=== PATIENT | female | born 1935 | race Caucasian/White ===

== ENCOUNTER 2018-09-30 10:11 | Outpatient (CLI) | payer MEDICARE, OTHER ==
--- NOTE | 2018-10-07 09:43 | Mammography Report ---
Reason: SCREENING MAMMO Procedure Date: 09/30/2018 Accession Number: [id number] / [id number] Procedure: PASCUAL - Screening Mammo w/Renan CPT Code: FULL RESULT: EXAM: Screening Mammo w/Renan DATE: 09/30/2018 11:19 AM CLINICAL HISTORY: Screening encounter. No reported risk factors. TECHNIQUE: (B) - Bilateral CC and MLO views were obtained. COMPARISON: 08/13/2017 through 12/13/2008. PARENCHYMAL PATTERN: (D) - The breast(s) demonstrate(s) heterogeneously dense fibroglandular parenchyma. FINDINGS: There are coarse typically benign left breast calcifications. There are no suspicious masses, calcifications, or areas of distortion. IMPRESSION: Benign findings. BI-RADS category 2. RECOMMENDATION: (ANNUAL) - Recommend routine annual screening mammography. BI-RADS CATEGORY: (2) - Benign Findings. STANDARD QUALIFYING STATEMENTS: 1. This examination was not reviewed with the aid of Computer-Aided Detection (CAD). 2. A negative or benign imaging report should not preclude biopsy if clinically suspicious findings are present. 3. Dense breasts may obscure an underlying neoplasm. 4. This examination was reviewed with the aid of 3D breast imaging (tomosynthesis).
== END 2018-09-30 10:12 | disposition home or self-care (01) ==
LOC: DI 10:11
DX: Z12.31 Encounter for screening mammogram for malignant neoplasm of breast (principal)
CPT/HCPCS: 77063; 77067

== ENCOUNTER 2018-09-30 11:21 | Outpatient (CLI) | payer MEDICARE, OTHER ==
--- NOTE | 2018-10-01 09:01 | DEXA Report ---
Reason: POSTMENOPAUSAL Procedure Date: 09/30/2018 Accession Number: [id number] / [id number] Procedure: DEX - Dexa Spine and/or Hip CPT Code: FULL RESULT: EXAM: Dexa Spine and/or Hip DATE: 09/30/2018 11:27 AM CLINICAL HISTORY: POSTMENOPAUSAL TECHNIQUE: Dual energy x-ray absorptiometry (DXA) was performed on a [facility]. Regions measured are the AP Spine, femoral neck, and if needed forearm. COMPARISON: None. In accordance with the International Society for Clinical Densitometry (ISCD) guidelines, data from previous exams may be reanalyzed using current recommendations and techniques. This is done to allow a more accurate basis for comparison with the current study. FINDINGS: The data for the lumbar spine is as follows: BMD (g/cm/cm) T-SCORE Z-SCORE REGION L1 0.740 -3.3 -1.6 L2 0.695 -4.2 -2.6 L3 0.814 -3.2 -1.6 L4 0.829 -3.1 -1.4 TOTAL 0.778 -3.3 -1.7 NOTE: All evaluable vertebrae are used for classification The data for the hip is as follows: BMD (g/cm/cm) T-SCORE Z-SCORE REGION Neck 0.763 -2.0 0.1 TOTAL 0.759 -2.0 0.0 NOTE: The femoral neck or total proximal femur, whichever is lowest, is used for classification. IMPRESSION: THE WHO CLASSIFICATION BASED ON THE INTERNATIONAL REFERENCE STANDARD IS OSTEOPOROSIS. THE FRACTURE RISK IS HIGH. RECOMMENDATION: Patients with diagnosis of osteoporosis or osteopenia should have regular bone mineral density assessment. For those eligible for Medicare, routine testing is allowed once every 2 years. Testing frequency can be increased for patients who have rapidly progressing disease or for those who are receiving medical therapy to restore bone mass. COMMENT: World Health Organization (WHO) definitions for osteoporosis and osteopenia: NORMAL BMD: T-score at -1.0 or higher, fracture risk is low OSTEOPENIA BMD: T-score between -1.0 and -2.5, fracture risk is increased. OSTEOPOROSIS BMD: T-score at -2.5 or lower, fracture risk is high. National Osteoporosis Foundation recommends: 1. Obtain adequate dietary calcium (at least 1200 mg per day) and vitamin D (400-800 international units per day). 2. Participate, as appropriate, in regular weightbearing and muscle-strengthening exercise. 3. Avoid tobacco use and reduce alcohol and caffeine intake. 4. For more detailed information see the website at www.NOF.org.
== END 2018-09-30 11:22 | disposition home or self-care (01) ==
LOC: DI 11:21
PROVIDERS: ATTEND Physician Assistant
DX: M81.0 Age-related osteoporosis without current pathological fracture (principal); Z78.0 Asymptomatic menopausal state
CPT/HCPCS: 77080

== ENCOUNTER 2018-10-03 10:35 | Outpatient (CLI) | payer MEDICARE, OTHER | END 2018-10-03 23:59 | disposition home or self-care (01) | LOC: LAB.R 10:35 | PROVIDERS: ATTEND Family Medicine | DX: R39.15 Urgency of urination (principal) | CPT/HCPCS: 81002; 87086; 87181 ==

== ENCOUNTER 2018-10-15 11:20 | Outpatient (CLI) | payer MEDICARE, OTHER | END 2018-10-15 23:59 | disposition home or self-care (01) | LOC: LAB.WCP 11:20 | PROVIDERS: ATTEND Physician Assistant | DX: R39.15 Urgency of urination (principal) | CPT/HCPCS: 81002; 87086 ==

== ENCOUNTER 2019-06-06 15:21 | Outpatient (CLI) | payer MEDICARE, OTHER ==
--- NOTE | 2019-06-07 14:44 | XRAY Report ---
Reason: KNEE PAIN,LEFT,CHRONIC Procedure Date: 06/06/2019 Accession Number: [id number] / [id number] Procedure: XR - Knee 2 View LT CPT Code: Final Report FULL RESULT: EXAM: LEFT KNEE RADIOGRAPHY EXAM DATE: 06/06/2019 03:35 PM. CLINICAL HISTORY: Knee pain, left, chronic. COMPARISON: None available. TECHNIQUE: 2 views. FINDINGS: Bones: Normal. No fractures or bone lesions. Joints: There is a small suprapatellar joint effusion. Minor medial and patellofemoral compartment spurring. Soft Tissues: Normal. No soft tissue swelling. IMPRESSION: 1. Small suprapatellar joint effusion. 2. Minor medial and patellofemoral compartment degenerative spurring. RADIA
== END 2019-06-06 15:22 | disposition home or self-care (01) ==
LOC: DI 15:21
PROVIDERS: ATTEND Physician Assistant
DX: M25.462 Effusion, left knee (principal); M17.12 Unilateral primary osteoarthritis, left knee

== ENCOUNTER 2019-09-30 11:34 | Outpatient (CLI) | payer MEDICARE, OTHER ==
[2019-09-30 18:17] LABS: BASOPHILS % (AUTO) 0.6 %; EOSINOPHILS # (AUTO) 0.2 10^3/uL (0.0-0.7); EOSINOPHILS % (AUTO) 2.7 %; HGB - HEMOGLOBIN 12.7 g/dL (12.0-16.0); LYMPHOCYTES % (AUTO) 31.4 %; MEAN CORPUSCULAR HEMOGLOBIN 27.5 pg (27.0-31.0); MEAN CORPUSCULAR HGB CONC 31.3 g/dL (32.0-36.0); MEAN CORPUSCULAR VOLUME 88.1 fL (81.0-99.0); MEAN PLATELET VOLUME 10.7 fL (7.9-10.8); MONOCYTES # (AUTO) 0.8 10^3/uL (0.0-1.0); MONOCYTES % (AUTO) 12.2 %; NEUTROPHILS # (AUTO) 3.3 10^3/uL (1.5-6.6); NEUTROPHILS % (AUTO) 52.8 %; PLT - PLATELET COUNT 275 10^3/uL (130-450); RED BLOOD COUNT 4.61 10^6/uL (4.20-5.40); RED CELL DISTRIBUTION WIDTH 13.2 % (12.0-15.0); WHITE BLOOD COUNT 6.3 x10^3/uL (4.8-10.8)
[2019-09-30 18:33] LABS: ALBUMIN 4.6 g/dL (3.2-5.5); ALBUMIN/GLOBULIN RATIO 1.7 (1.0-2.2); BILIRUBIN,TOTAL 0.6 mg/dL (0.2-1.0); CALCIUM 9.5 mg/dL (8.5-10.3); CREATININE 0.6 mg/dL (0.4-1.0); TOTAL PROTEIN 7.3 g/dL (6.7-8.2)
== END 2019-09-30 23:59 | disposition home or self-care (01) ==
LOC: LAB.WCP 11:34
PROVIDERS: ATTEND Physician Assistant
DX: I10 Essential (primary) hypertension (principal)
CPT/HCPCS: 36415; 80053; 85025

== ENCOUNTER 2020-08-31 15:31 | Outpatient (CLI) | payer MEDICARE, OTHER ==
--- NOTE | 2020-08-31 16:19 | XRAY Report ---
PROCEDURE: Shoulder 2 View RT INDICATIONS: ARTHRITIS, RIGHT SHOULDER TECHNIQUE: 2 views of the shoulder were acquired. COMPARISON: None. FINDINGS: Severe degenerative changes in the glenohumeral joint characterized by near complete joint space loss and bulky osteophytosis along with subchondral sclerosis and cystic change. Mild osteoarthritic fletcher ges in the acromioclavicular joint. No fracture or dislocation. No suspicious lytic or blastic osseou s lesion. No suspicious soft tissue calcifications. IMPRESSION: Severe right glenohumeral osteoarthritis. Reviewed by: Luis Tian MD on 08/31/2020 4:18 PM PDT Approved by: Luis Tian MD on 08/31/2020 4:18 PM PDT Station ID: [id number]
== END 2020-08-31 23:59 | disposition home or self-care (01) ==
LOC: DI.N 15:31
PROVIDERS: ATTEND Family Medicine
DX: M19.011 Primary osteoarthritis, right shoulder (principal)

== ENCOUNTER 2020-11-09 15:45 | Outpatient (CLI) | payer MEDICARE, OTHER ==
[2020-11-09 16:01] LABS: BASOPHILS % (AUTO) 0.3 %; EOSINOPHILS # (AUTO) 0.2 10^3/uL (0.0-0.7); HCT - HEMATOCRIT 38.9 % (37.0-47.0); HGB - HEMOGLOBIN 12.7 g/dL (12.0-16.0); LYMPHOCYTES # (AUTO) 1.8 10^3/uL (1.5-3.5); LYMPHOCYTES % (AUTO) 24.9 %; MEAN CORPUSCULAR HEMOGLOBIN 28.2 pg (27.0-31.0); MEAN CORPUSCULAR HGB CONC 32.6 g/dL (32.0-36.0); MEAN CORPUSCULAR VOLUME 86.4 fL (81.0-99.0); MEAN PLATELET VOLUME 9.7 fL (7.9-10.8); MONOCYTES # (AUTO) 0.6 10^3/uL (0.0-1.0); MONOCYTES % (AUTO) 8.3 %; NEUTROPHILS # (AUTO) 4.8 10^3/uL (1.5-6.6); NEUTROPHILS % (AUTO) 64.2 %; PLT - PLATELET COUNT 266 10^3/uL (130-450); RED CELL DISTRIBUTION WIDTH 13.2 % (12.0-15.0); WHITE BLOOD COUNT 7.4 x10^3/uL (4.8-10.8)
[2020-11-09 16:21] LABS: ALBUMIN 4.1 g/dL (3.2-5.5); ALBUMIN/GLOBULIN RATIO 1.2 (1.0-2.2); ALKALINE PHOSPHATASE 75 IU/L (42-121); ALT ALANINE AMINOTRANSFERASE 15 IU/L (10-60); AST ASPARTATE AMINOTRANSFERASE 24 IU/L (10-42); BILIRUBIN,TOTAL 0.7 mg/dL (0.2-1.0); BUN - BLOOD UREA NITROGEN 17 mg/dL (6-20); CALCIUM 9.3 mg/dL (8.5-10.3); CARBON DIOXIDE - CO2 25 mmol/L (21-32); CHLORIDE 98 mmol/L (101-111); CHOL/HDL RATIO 3.2 (<4.4); CHOLESTEROL 211 mg/dL; CREATININE 0.6 mg/dL (0.4-1.0); GFR - MDRD 95 (>89); GLUCOSE 150 mg/dL (70-100); HDL CHOLESTEROL 65 mg/dL; LDL CHOLESTEROL,CALCULATED 133 mg/dL; POTASSIUM 3.4 mmol/L (3.5-5.0); SODIUM 134 mmol/L (135-145); TOTAL PROTEIN 7.5 g/dL (6.7-8.2); TRIGLYCERIDES 63 mg/dL; VLDL CHOLESTEROL 13 mg/dL
== END 2020-11-09 15:46 | disposition home or self-care (01) ==
LOC: LAB 15:45
PROVIDERS: ATTEND Family Medicine
DX: I10 Essential (primary) hypertension (principal); E78.5 Hyperlipidemia, unspecified
CPT/HCPCS: 36415; 80053; 80061; 83721; 85025

== ENCOUNTER 2020-12-23 15:44 | Outpatient (CLI) | payer MEDICARE, OTHER ==
[2020-12-23 16:14] LABS: BASOPHILS % (AUTO) 0.5 %; EOSINOPHILS # (AUTO) 0.1 10^3/uL (0.0-0.7); HCT - HEMATOCRIT 40.7 % (37.0-47.0); HGB - HEMOGLOBIN 12.9 g/dL (12.0-16.0); LYMPHOCYTES # (AUTO) 2.3 10^3/uL (1.5-3.5); LYMPHOCYTES % (AUTO) 34.3 %; MEAN CORPUSCULAR HEMOGLOBIN 27.8 pg (27.0-31.0); MEAN CORPUSCULAR HGB CONC 31.7 g/dL (32.0-36.0); MEAN CORPUSCULAR VOLUME 87.7 fL (81.0-99.0); MEAN PLATELET VOLUME 9.5 fL (7.9-10.8); MONOCYTES # (AUTO) 0.7 10^3/uL (0.0-1.0); MONOCYTES % (AUTO) 11.1 %; NEUTROPHILS # (AUTO) 3.4 10^3/uL (1.5-6.6); NEUTROPHILS % (AUTO) 51.9 %; PLT - PLATELET COUNT 272 10^3/uL (130-450); RED BLOOD COUNT 4.64 10^6/uL (4.20-5.40); RED CELL DISTRIBUTION WIDTH 13.6 % (12.0-15.0); WHITE BLOOD COUNT 6.6 x10^3/uL (4.8-10.8)
[2020-12-23 16:24] LABS: CALCIUM 9.5 mg/dL (8.5-10.3); CREATININE 0.6 mg/dL (0.4-1.0); POTASSIUM 3.5 mmol/L (3.5-5.0)
[2020-12-23 20:14] LABS: ESTIMATED AVERAGE GLUCOSE 120 mg/dL (70-100); HEMOGLOBIN A1c% 5.8 % (4.27-6.07)
== END 2020-12-23 15:45 | disposition home or self-care (01) ==
LOC: RT 15:44
PROVIDERS: ATTEND Orthopaedic Surgery
DX: Z01.818 Encounter for other preprocedural examination (principal); M25.511 Pain in right shoulder; R73.9 Hyperglycemia, unspecified
CPT/HCPCS: 36415; 80048; 83036; 85025; 93005

== ENCOUNTER 2021-01-27 10:37 | Outpatient (CLI) | payer MEDICARE, OTHER | END 2021-01-27 10:38 | disposition EMS.NT | LOC: EMS 10:37 | DX: R55 Syncope and collapse (principal) ==

== ENCOUNTER 2022-03-22 14:28 | Outpatient (CLI) | payer MEDICARE, OTHER ==
--- NOTE | 2022-03-22 17:14 | XRAY Report ---
PROCEDURE: Ankle 2 View LT INDICATIONS: SPRAIN OF LIGAMENT OF L ANKLE TECHNIQUE: 2 views of the ankle were acquired. COMPARISON: None FINDINGS: Bones: No fractures or dislocations. Ankle mortise is normally aligned. No suspicious bony lesions . Soft tissues: No tibiotalar joint effusion. Moderate medial periarticular soft tissue swelling. Ach illes tendon appears normal. Dystrophic soft tissue calcification measuring 8 mm in the posterior me dial lower leg. IMPRESSION: 1. No visible fracture on 2 given views. 2. Medial soft tissue swelling. Reviewed by: Marley Smallwood MD on 03/22/2022 5:13 PM PST Approved by: Marley Smallwood MD on 03/22/2022 5:13 PM PST Station ID: [id number]
== END 2022-03-22 23:49 | disposition home or self-care (01) ==
LOC: DI.N 14:28
PROVIDERS: ATTEND Nurse Practitioner
DX: R22.42 Localized swelling, mass and lump, left lower limb (principal); S93.402S Sprain of unspecified ligament of left ankle, sequela

== ENCOUNTER 2022-11-24 11:30 | Outpatient (CLI) | payer MEDICARE, OTHER ==
[2022-11-24 11:51] LABS: BASOPHILS % (AUTO) 0.7 %; EOSINOPHILS # (AUTO) 0.2 10^3/uL (0.0-0.7); HCT - HEMATOCRIT 40.4 % (37.0-47.0); HGB - HEMOGLOBIN 13.1 g/dL (12.0-16.0); LYMPHOCYTES # (AUTO) 1.6 10^3/uL (1.5-3.5); MEAN CORPUSCULAR HEMOGLOBIN 28.3 pg (27.0-31.0); MEAN CORPUSCULAR HGB CONC 32.4 g/dL (32.0-36.0); MEAN CORPUSCULAR VOLUME 87.3 fL (81.0-99.0); MEAN PLATELET VOLUME 9.4 fL (7.9-10.8); MONOCYTES # (AUTO) 0.7 10^3/uL (0.0-1.0); MONOCYTES % (AUTO) 12.7 %; NEUTROPHILS # (AUTO) 3.2 10^3/uL (1.5-6.6); NEUTROPHILS % (AUTO) 55.3 %; PLT - PLATELET COUNT 249 10^3/uL (130-450); RED BLOOD COUNT 4.63 10^6/uL (4.20-5.40); WHITE BLOOD COUNT 5.8 x10^3/uL (4.8-10.8)
[2022-11-24 12:12] LABS: ALBUMIN/GLOBULIN RATIO 1.2 (1.0-2.2); BILIRUBIN,TOTAL 0.5 mg/dL (0.2-1.0); CALCIUM 9.8 mg/dL (8.5-10.3); CREATININE 0.7 mg/dL (0.6-1.3); POTASSIUM 3.7 mmol/L (3.5-4.5); TOTAL PROTEIN 7.4 g/dL (6.4-8.9)
[2022-11-24 12:27] LABS: THYROID STIMULATING HORMONE 1.71 uIU/mL (0.34-5.60)
== END 2022-11-24 11:31 | disposition home or self-care (01) ==
LOC: LAB 11:30
PROVIDERS: ATTEND Nurse Practitioner Family
DX: R01.1 Cardiac murmur, unspecified (principal); I10 Essential (primary) hypertension
CPT/HCPCS: 36415; 80053; 84443; 85025

== ENCOUNTER 2023-11-09 08:39 | Outpatient (CLI) | payer MEDICARE, OTHER ==
[2023-11-09 08:55] LABS: BASOPHILS # (AUTO) 0.1 10^3/uL (0.0-0.1); BASOPHILS % (AUTO) 0.8 %; EOSINOPHILS # (AUTO) 0.2 10^3/uL (0.0-0.7); EOSINOPHILS % (AUTO) 3.6 %; HCT - HEMATOCRIT 40.8 % (37.0-47.0); HGB - HEMOGLOBIN 13.1 g/dL (12.0-16.0); LYMPHOCYTES # (AUTO) 1.8 10^3/uL (1.5-3.5); LYMPHOCYTES % (AUTO) 27.5 %; MEAN CORPUSCULAR HEMOGLOBIN 27.8 pg (27.0-31.0); MEAN CORPUSCULAR HGB CONC 32.1 g/dL (32.0-36.0); MEAN CORPUSCULAR VOLUME 86.4 fL (81.0-99.0); MEAN PLATELET VOLUME 9.7 fL (7.9-10.8); MONOCYTES # (AUTO) 0.7 10^3/uL (0.0-1.0); MONOCYTES % (AUTO) 10.8 %; NEUTROPHILS # (AUTO) 3.8 10^3/uL (1.5-6.6); NEUTROPHILS % (AUTO) 57.1 %; PLT - PLATELET COUNT 271 10^3/uL (130-450); RED BLOOD COUNT 4.72 10^6/uL (4.20-5.40); RED CELL DISTRIBUTION WIDTH 13.4 % (12.0-15.0); WHITE BLOOD COUNT 6.6 x10^3/uL (4.8-10.8)
[2023-11-09 09:11] LABS: ALBUMIN 3.7 g/dL (3.2-5.5); ALBUMIN/GLOBULIN RATIO 1.1 (1.0-2.2); BILIRUBIN,TOTAL 0.5 mg/dL (0.2-1.0); CALCIUM 9.1 mg/dL (8.5-10.3); CREATININE 0.7 mg/dL (0.6-1.3); POTASSIUM 3.6 mmol/L (3.5-4.5); TOTAL PROTEIN 7.1 g/dL (6.4-8.9)
== END 2023-11-09 08:40 | disposition home or self-care (01) ==
LOC: LAB 08:39
PROVIDERS: ATTEND Nurse Practitioner Family
DX: Z02.89 Encounter for other administrative examinations (principal); I10 Essential (primary) hypertension
CPT/HCPCS: 36415; 80053; 85025

== ENCOUNTER 2024-12-16 11:05 | Observation (INO) ==
--- OUTSIDE RECORDS SUMMARY | 2024-12-16 11:11 | EXTERNAL MEDICAL SUMMARY RPT | Continuity of Care Document ---
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 2024-10-09 10:25 Pain in right thigh [facility] 2024-10-09 10:25 Pain, unspecified [facility] 2024-10-09 10:25 Other fatigue [facility] Social History date description facility
[2024-12-16 12:03] LABS: HCT - HEMATOCRIT 39.3 % (37.0-47.0); HGB - HEMOGLOBIN 12.4 g/dL (12.0-16.0); MEAN PLATELET VOLUME 10.1 fL (7.9-10.8); NRBC ABSOLUTE COUNT (AUTO) 0.00 x10^3/uL; NUCLEATED RED BLOOD CELLS AUTO 0.0 /100WBC; PLT - PLATELET COUNT 290 10^3/uL (130-450); RED CELL DISTRIBUTION WIDTH 13.7 % (12.0-15.0)
--- NOTE | 2024-12-16 12:07 | ED Physician Documentation ---
History of Present Illness Stated complaint Stated Complaint: FALL/WEAKNESS Chief complaint Chief Complaint: Trauma Ext History obtained from History obtained from: Patient History of Present Illness Timing: Prior to arrival Additonal information Additional information: Patient is an 89-year-old female presenting to the emergency department with unwitnessed fall she was found outside of her bedroom naked by her around 905 this morning. He states she has a history of dementia and patient does not recall the fall unsure if she lost consciousness but she is not on any blood thinners. He was unable to get her back up and patient is usually weak in her lower legs. She was brought in by EMS who noted a posterior hematoma to the back of her head but patient denies any pain. She has had no nausea or vomiting. She is ANO x 2 here in the emergency department. Apparently according to she is usually ANO x 3 but will only occasionally know the date. She has no pain in her upper or lower extremities. unsure how long she was on the floor last known well time around 7 PM last night. Patient is not on any medications for her history of dementia. She takes meloxicam as needed on chlorthalidone for history of hypertension with last dose this morning. Previous echo from 2021 shows LVH with EF of 65% Meds/Allgy Home Medications Ambulatory Orders Medication Instructions Recorded Confirmed epinephrine 0.3 mg/0.3 mL 0.3 mg IM ONCE PRN anaphylax is 01/03/24 12/16/24 injection, auto-injector (EpiPen) potassium chloride 8 mEq 8 meq PO ONCE 01/03/2412/16 tablet,extended release chlorthalidone 25 mg tablet 25 mg PO QAM #90 tabs 01/2412/16/24 meloxicam 7.5 mg tablet 7.5 mg PO BID #30 tabs 09/1412/16/24 potassium chloride 10 mEq oral 10 meq PO DAILY #5 ea 0 09/14/24 12/16/24 packet Allergies Allergies Allergy/AdvReac Type Severity Reaction Status Date / Time amoxicillin Allergy Unknown Hives Verified 12/16/24 12:03 cefadroxil Allergy Unknown Hives Verified 12/16/24 12:03 cephalexin Allergy Unknown Hives Verified 12/16/24 12:03 clindamycin Allergy Unknown Hives Verified 12/16/24 12:03 erythromycin base Allergy Unknown Hives Verified 12/16/24 12:03 cephalexin monohydrate * Allergy Hives Verified 12/16/24 12:03 (From Keflex) Penicillins Allergy Hives Verified 12/16/24 12:03 tacrolimus (From Protopic) Allergy Hives Verified 12/16/24 12:03 BEE STINGS Allergy Severe Unknown Uncoded 12/16/24 12:03 CLINDAMYCIN HCL Allergy Severe Unknown Uncoded 12/16/24 12:03 PENICILLIN V POTASSIUM Allergy Unknown hives Uncoded 12/16/24 12:03 PFSH Active Problems All Active Problems (Updated 12/16/24 @ 18:57 by Nga Goodwin PA-C) Fall (Acute) UTI (urinary tract infection) (Acute) Medication management (Acute) Moderate cognitive impairment (Acute) Osteoporosis (Acute) Arthritis (Acute) Hypercholesteremia (Acute) Hypertension (Acute) Fungal toenail infection (Acute) Medical History Medical History (Updated 12/16/24 @ 18:57 by Nga Goodwin PA-C) Osteoarthritis of right shoulder Hammer toe Surgical History Surgical History History of total replacement of right shoulder joint Hx of tonsillectomy H/O cataract extraction Social History Social History (Updated 12/16/24 @ 12:08 by Brayden Ferraro RN) Smoking Status: Unknown if ever smoked Second hand tobacco smoke exposure: No Do you dip or chew tobacco?: No Do you vape?: No Living arrangement: At home Marital Status: Living Condition: With spouse/s.o. Support Person: Yes Living Situation Details: Daughter is SUE Chen, lives in [place], [place] Physical Activity: Walking Level: Independent Do you feel safe in your home environment?: Yes History of physical, verbal, emotional, or financial abuse?: No ETOH Use: None Substance Use: denies use Retired: Yes Exam Exam Vital Signs: Vital Signs x48h Temp Pulse Resp BP Pulse Ox 12/16/24 17:44 82 24 152/64 H 94 12/16/24 15:43 91 28 H 140/57 H 98 12/16/24 14:23 96 22 135/78 H 98 12/16/24 12:53 96 24 169/77 H 96 12/16/24 12:16 100 18 170/93 H 94 12/16/24 11:31 36.4 C L 81 17 165/81 H 96 Constitutional normal general appearance HENMT hearing grossly normal bilaterally Posterior hematoma to back of head Eyes PERRL, EOMs intact bilaterally and conjunctivae normal Neck/C-Spine visual inspection normal No C-spine tenderness full range of motion of neck Chest No reproducible rib tenderness crepitus tenderness or swelling bruising Respiratory breath sounds equal bilaterally, normal respiratory effort and clear to auscultation bilaterally Cardiovascular normal heart rate noted, regular rhythm noted and no gallop Gastrointestinal abdomen normal to inspection Genitourinary no CVA tenderness Skin skin color normal, no rash and no lesions Results Vitals Vitals: Vital Signs - 24 hr 12/16/24 11:31 12/16/24 12:03 12/16/24 12:16 Temperature 36.4 C L Temperature Source Temporal Artery Scan Pulse Rate 81 100 Pulse Strength Normal Respiratory Rate 17 18 Blood Pressure 165/81 H 170/93 H O2 Saturation 96 94 O2 Source Room air Room air Pain Intensity 4 2 12/16/24 12:53 12/16/24 14:23 12/16/24 15:43 Temperature Temperature Source Pulse Rate 96 96 91 Pulse Strength Respiratory Rate 24 22 28 H Blood Pressure 169/77 H 135/78 H 140/57 H O2 Saturation 96 98 98 O2 Source Room air Room air Room air Pain Intensity 0 0 0 12/16/24 17:44 Temperature Temperature Source Pulse Rate 82 Pulse Strength Respiratory Rate 24 Blood Pressure 152/64 H O2 Saturation 94 O2 Source Room air Pain Intensity Oxygen O2 Source Room air EKG (time done) 1150: EKG releavant findings:: EKG personally interpreted by author of this note. Relevant findings are: Rate: Rate (enter#) (93 bpm) Rhythm: NSR [place]: Normal Intervals: Normal [place] QRS: QRS normal Ischemia: Normal ST segments Compare to prior EKG: Unchanged from prior EKG Computer interpretation: Agree with computer Labs Labs: Laboratory Tests 12/16/24 12/16/24 12/16/24 11:56 12:12 14:04 WBC 11.2 H RBC 4.44 Hgb 12.4 Hct 39.3 MCV 88.5 MCH 27.9 MCHC 31.6 L RDW 13.7 Plt Count 290 MPV 10.1 Neut # (Auto) 9.1 H Lymph # (Auto) 1.0 L [place] # (Auto) 1.0 Eos # (Auto) 0.0 Baso # (Auto) 0.0 Absolute Nucleated RBC 0.00 Nucleated RBC % 0.0 Sodium 137 Potassium 3.9 Chloride 107 Carbon Dioxide 24 Anion Gap 6.0 BUN 19 Creatinine 0.6 Estimated GFR (MDRD) 94 Glucose 110 H Calcium 9.1 Magnesium 1.9 Total Bilirubin 0.4 AST 32 ALT 32 Alkaline Phosphatase 92 Total Creatine Kinase 300 H Total Protein 7.1 Albumin 3.8 Globulin 3.3 Albumin/Globulin Ratio 1.2 Urine Color YELLOW Urine Clarity HAZY Urine pH 6.5 Ur Specific [place] 1.020 Urine Protein TRACE Urine Glucose (UA) NEGATIVE Urine Ketones NEGATIVE Urine Occult Blood MODERATE Urine Nitrite POSITIVE H Urine Bilirubin NEGATIVE Urine Urobilinogen 0.2 (NORMAL) Ur Leukocyte Esterase NEGATIVE Urine RBC 6-10 H Urine WBC 4-5 Ur Squamous Epith Cells FEW Squamous Urine Bacteria Many H Ur Microscopic Review INDICATED Urine Culture Comments INDICATED Nasal Adenovirus (PCR) NOT DETECTED Nasal B. parapertussis DNA (PCR) NOT DETECTED Nasal Coronavir 229E PCR NOT DETECTED Nasal Coronavir HKU1 PCR NOT DETECTED Nasal Coronavir NL63 PCR NOT DETECTED Nasal Coronavir OC43 PCR NOT DETECTED Nasal Enterovir/Rhinovir PCR NOT DETECTED Nasal Influenza B PCR NOT DETECTED Nasal Influenza A PCR NOT DETECTED Nasal Parainfluen 1 PCR NOT DETECTED Nasal Parainfluen 2 PCR NOT DETECTED Nasal Parainfluen 3 PCR NOT DETECTED Nasal Parainfluen 4 PCR NOT DETECTED Nasal RSV (PCR) NOT DETECTED Nasal B.pertussis DNA PCR NOT DETECTED Nasal C.pneumoniae (PCR) NOT DETECTED Ankush Human Metapneumo PCR NOT DETECTED Nasal M.pneumoniae (PCR) NOT DETECTED Nasal SARS-CoV-2 (PCR) NOT DETECTED PD Medical Decision Making ED course Complexity details: reviewed old records and reviewed results ED course: Patient 89-year-old female presenting to the emergency department with fall. Patient had been found by her around 9:05 AM after he went to check on her he is her main primary care provider. Labs here in the emergency department are showing mild leukocytosis of 11.2 no signs of significant anemia CMP shows no significant NEETU or electrolyte abnormality despite EKG showing slightly PVC her mag. CK minimally elevated at 300 and UA positive for UTI with positive nitrites and 6-10 red blood cells. Respiratory swab is negative as well. CT head and CT cervical spine showed no acute findings. Ct cervical spine:No acute, displaced fracture or traumatic subluxation. CT head: 1. No acute intracranial pathology. 2. 3. Chronic generalized volume loss and microvascular ischemic changes in the supratentorial white matter. 4. Dermally based partially calcified lesions in the right parieto-occipital scalp and left parietal scalp likely represent epidermal inclusion cyst. Correlate with physical exam findings. .Posterior hematoma most likely inclusion cyst and not secondary to trauma. She was attempted to be ambulated here in the ED and was one-person assist just to using the toilet. She had an In-N-Out catheter as she was having difficulty with urinating and she is unable to ambulate she lives at home with just her who is unable to take care of her. Given UTI encephalopathy and difficulty ambulating patient will be admitted.Patient started on Macrobid to cover for UTI as she has significant history of allergies.Patient admitted to hospitalist [facility] for further evaluation and treatment. Discharge Plan Discharge Patient Disposition: [facility] DC/Xfer Condition: Good Clinical Impression: UTI (urinary tract infection), Fall Prescriptions: No Action chlorthalidone 25 mg tablet 25 mg PO QAM Qty: 90 3RF Rx Instructions: Take 1 tablet by mouth every morning potassium chloride 10 mEq packet 10 meq PO DAILY Qty: 5 0RF meloxicam 7.5 mg tablet 7.5 mg PO BID Qty: 30 0RF potassium chloride 8 mEq tablet extended release 8 meq PO ONCE Rx Instructions: TAKE ONE (1) TABLET BY MOUTH ONCE A DAY epinephrine [EpiPen] 0.3 mg/0.3 mL auto-injector 0.3 mg IM ONCE PRN (Reason: anaphylaxis) Rx Instructions: Inject 1 pen injector intramuscularly single dose as needed for severe allergic reaction Print Language: Ukrainian
[2024-12-16 12:18] LABS: ALT ALANINE AMINOTRANSFERASE 32.0 IU/L (10-60); AST ASPARTATE AMINOTRANSFERASE 32.0 IU/L (10-42); BUN - BLOOD UREA NITROGEN 19.0 mg/dL (6-20); CARBON DIOXIDE - CO2 24.0 mmol/L (21-32); CK- CREATINE KINASE 300.0 IU/L (30-223); CREATININE 0.6 mg/dL (0.6-1.3); GFR - MDRD 94.0 (>89)
--- NOTE | 2024-12-16 13:29 | CT Report ---
PROCEDURE: CT Head WO INDICATIONS: fall head injury TECHNIQUE: CT of the head was performed, without intravenous contrast. Reformats: Coronal and sagittal. For radiation dose reduction, the following was used: automated exposure control, adjustment of mA and/or kV according to patient size. COMPARISON: None. FINDINGS: Image quality: Diagnostic. CSF spaces: Basal cisterns are patent. No extra-axial fluid collections. Ventricles are normal in size and shape. Brain: No midline shift. No intracranial mass effect or hemorrhage. [place]- white matter interface is normal. Age appropriate volume loss and periventricular white matter hypoattenuation, likely chronic ischemic change. 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 Skull and face: Calvarium and visualized facial bones are intact, without suspicious lesions. Calcified dermal-based lesions in the right posterior parietal occipital scalp and left parietal scalp, likely are present epidermal inclusion cysts. Sinuses: Visualized sinuses and mastoids are clear. IMPRESSION: 1. No acute intracranial pathology. 2. 3. Chronic generalized volume loss and microvascular ischemic changes in the supratentorial white matter. 4. Dermally based partially calcified lesions in the right parieto-occipital scalp and left parietal scalp likely represent epidermal inclusion cyst. Correlate with physical exam findings. Reviewed by: Chito Archibald MD on 12/16/2024 1:26 PM PDT Approved by: Chito Archibald MD on 12/16/2024 1:26 PM PDT Station ID: [id number]
--- NOTE | 2024-12-16 13:32 | CT Report ---
PROCEDURE: CT Cervical Spine WO INDICATIONS: fall head injury TECHNIQUE: Noncontrast images acquired from the skull base to the T4 level. Sagittal and coronal reformats were then constructed. For radiation dose reduction, the following was used: automated exposure control, adjustment of mA and/or kV according to patient size. COMPARISON: None. FINDINGS: Image quality: Excellent. Bones: No fractures or dislocations. No traumatic subluxation. Mild, degenerative, grade 1, anterolisthesis of C5 on C6. Mild multilevel neuroforaminal stenosis secondary to facet and uncovertebral arthrosis. No high- grade bony stenosis. Visualized superior ribs are intact. Soft tissues: Prevertebral soft tissues are normal in thickness. No paravertebral hematomas. No apical pneumothoraces. IMPRESSION: No acute, displaced fracture or traumatic subluxation. Reviewed by: Chito Archibald MD on 12/16/2024 1:28 PM PDT Approved by: Chito Archibald MD on 12/16/2024 1:28 PM PDT Station ID: [id number]
[2024-12-16 14:28] LABS: GLUCOSE, URINE (UA) NEGATIVE (NEGATIVE); KETONES,URINE (UA) NEGATIVE (NEGATIVE); OCCULT BLOOD,URINE MODERATE (NEGATIVE)
[2024-12-16 14:33] LABS: SQUAMOUS EPITHELIAL CELL,UR FEW Squamous (<= Few)
[2024-12-16 14:50] LABS: B. PARAPERTUSSIS- RESP PCR PAN NOT DETECTED; B. PERTUSSIS- RESP PCR PANEL NOT DETECTED; C. PNEUMONIAE- RESP PCR PANEL NOT DETECTED; CORONAVIRUS 229E-RESP PCR NOT DETECTED; CORONAVIRUS HKU1-RESP PCR NOT DETECTED; CORONAVIRUS NL63-RESP PCR NOT DETECTED; CORONAVIRUS OC43-RESP PCR NOT DETECTED; HUMAN METAPNEUMOVIRUS NOT DETECTED; INFLUENZA A- RESP PCR PANEL NOT DETECTED; INFLUENZA B - RESP PCR PANEL NOT DETECTED; M. PNEUMONIAE- RESP PCR PANEL NOT DETECTED; PARAINFLUENZA VIRUS 1 NOT DETECTED; PARAINFLUENZA VIRUS 2 NOT DETECTED; PARAINFLUENZA VIRUS 4 NOT DETECTED; RHINOVIRUS/ENTEROVIRUS NOT DETECTED; RSV- RESP PCR PANEL NOT DETECTED; SARS-CoV-2 -RESP PCR PANEL NOT DETECTED
[2024-12-16] MEDS: NITROFURANTOIN MACRO 100 MG CAPSULE PO STA (16:20)
[2024-12-16] MEDS: SODIUM CHLORIDE 0.9% 1,000 ML IV STA (17:38)
--- NOTE | 2024-12-16 21:13 | HISTORY & PHYSICAL EXAMINATION ---
Chief Complaint Chief Complaint Chief Complaint: found down History of Present Illness Admitted From Admitted From:: home History Obtained From Records Reviewed: PCP, ED records History obtained from: Patient, separate phone call to History of Present Illness HPI Comment/Other: 89-year-old female with past medical history of dementia, peripheral edema and multiple drug allergies presents to the emergency department with complaints of being found down outside her bedroom door this morning. That was her only complaint. She was unable to get up off the floor after her fall. And was found by her . Overall I am unclear of what her baseline orientation is. I evaluate the patient initially at the bedside then I called her . He tells me that lately she has been confused. She does not seem to know what day it is most of the time and has deficits in her short-term memory. When I ask him how long this has been going on he tells me he thinks 2 to 3 months. When asked the patient to verify her drug allergies and confirmed that her reactions to all these medications are hives she tells me that she is really not sure. She does not know what her drug allergies are or what her reactions are. Her denies all knowledge of her drug allergies as well. confirms DNR/selective tx POLST on chart. He is her surrgogate decision maker Meds/Allgy Home Medications Ambulatory Orders Medication Instructions Recorded Confirmed epinephrine 0.3 mg/0.3 mL 0.3 mg IM ONCE PRN anaphylax is 01/03/24 12/16/24 injection, auto-injector (EpiPen) potassium chloride 8 mEq 8 meq PO ONCE 01/03/2412/16 tablet,extended release chlorthalidone 25 mg tablet 25 mg PO QAM #90 tabs 01/2412/16/24 meloxicam 7.5 mg tablet 7.5 mg PO BID #30 tabs 09/1412/16/24 potassium chloride 10 mEq oral 10 meq PO DAILY #5 ea 0 09/14/24 12/16/24 packet Allergies Allergies Allergy/AdvReac Type Severity Reaction Status Date / Time amoxicillin Allergy Unknown Hives Verified 12/16/24 12:03 cefadroxil Allergy Unknown Hives Verified 12/16/24 12:03 cephalexin Allergy Unknown Hives Verified 12/16/24 12:03 clindamycin Allergy Unknown Hives Verified 12/16/24 12:03 erythromycin base Allergy Unknown Hives Verified 12/16/24 12:03 cephalexin monohydrate * Allergy Hives Verified 12/16/24 12:03 (From Keflex) Penicillins Allergy Hives Verified 12/16/24 12:03 tacrolimus (From Protopic) Allergy Hives Verified 12/16/24 12:03 BEE STINGS Allergy Severe Unknown Uncoded 12/16/24 12:03 CLINDAMYCIN HCL Allergy Severe Unknown Uncoded 12/16/24 12:03 PENICILLIN V POTASSIUM Allergy Unknown hives Uncoded 12/16/24 12:03 PFSH Active Problems All Active Problems (Updated 12/17/24 @ 00:09 by SILVIA Betancur) Metabolic encephalopathy (Acute) Fall (Acute) UTI (urinary tract infection) (Acute) Medication management (Acute) Moderate cognitive impairment (Acute) Osteoporosis (Acute) Arthritis (Acute) Hypercholesteremia (Acute) Hypertension (Acute) Fungal toenail infection (Acute) Medical History Medical History (Updated 12/17/24 @ 00:09 by SILVIA Betancur) Osteoarthritis of right shoulder Hammer toe Surgical History Surgical History History of total replacement of right shoulder joint Hx of tonsillectomy H/O cataract extraction Social History Social History (Updated 12/16/24 @ 12:08 by Brayden Ferraro RN) Smoking Status: Unknown if ever smoked Second hand tobacco smoke exposure: No Do you dip or chew tobacco?: No Do you vape?: No Living arrangement: At home Marital Status: Living Condition: With spouse/s.o. Support Person: Yes Living Situation Details: Daughter is SUE Chen, lives in [place], [place] Physical Activity: Walking Level: Assisted Do you feel safe in your home environment?: Yes History of physical, verbal, emotional, or financial abuse?: No ETOH Use: None Substance Use: denies use Retired: Yes POLST Patient has POLST: Yes POLST CPR Status: Do Not Attempt Resuscitation (DNAR) / Allow Natural Level of Medical Intervention: Selective Treatment Review of Systems Status of ROS: unobtainable due to mental status Prior Level of Functionality: lives at home with Exam Exam Vital Signs: Vital Signs x48h Temp Pulse Pulse Resp BP BP Pulse Ox 09/23/25 21:57 36.6 C 82 18 166/79 H 96 12/16/24 21:48 89 20 169/99 H 94 12/16/24 19:00 85 23 161/68 H 93 12/16/24 17:44 82 24 152/64 H 94 Constitutional normal general appearance and no apparent distress HENMT normocephalic and oral mucous membranes normal Eyes PERRL and no scleral icterus Neck/C-Spine visual inspection normal Chest inspection of chest normal Respiratory breath sounds equal bilaterally, normal respiratory effort and clear to auscultation bilaterally Cardiovascular normal heart rate noted Gastrointestinal abdomen normal to inspection, abdomen soft to palpation and nontender to palpation Genitourinary no CVA tenderness and bladder normal to palpation Extremities normal to inspection mild generalized ST right lower leg. no erythema. mild edema, equal to left. Neurology speech normal oriented to place and self, not time Psychiatry cooperative and affect normal Skin skin color normal Conclusion/Plan Problem List (1) Metabolic encephalopathy: Plan: Patient presents with a mildly elevated creatinine kinase having laid on the floor for an unknown number of hours. Her renal function is within normal limits and at its baseline. She is acutely encephalopathic today. It would seem this is probably secondary to urinary tract infection. This patient is a very poor historian. She is unable to tell me anything about her antibiotic allergies she has multiple antibiotic allergies listed on the chart which makes it very difficult to prescribe correctly. I called her and he was also unable to provide any information about her drug allergies. As I have a phone conversation with him it is difficult for him to stay on task with the questions that I am asking him. This gives me great concern about their social situation. A twin quinolone would be appropriate choice for this patient however her QT is prolonged and this does put her at risk of cardiac arrhythmias. For the time being I am going to admit this patient and give her supportive care. I will treat her urinary tract infection with Macrobid as that is the safest option at this juncture. Will consult with the pharmacist further in the morning. Discussed with Tiffany Patterson the emergency department decision was made to admit this patient to inpatient status I think she will be here greater than 2 midnights less from the standpoint of her UTI and more for the standpoint of her encephalopathy. She may require placement. (2) UTI (urinary tract infection): Plan: UTI. Urine is positive for nitrites with many bacteria seen. Previous urine cultures show pansensitive E. coli although these are 6 years old at this point. I will start the patient on Macrobid. We will repeat EKG in the morning. I do not have any hope of obtaining better information on her drug allergies at this point. And she lists hives which can be indicative of a very serious reaction. Also of note this patient has an EpiPen prescribed. This does lead me to believe she could have severe allergies (3) Moderate cognitive impairment: Plan: This patient is been diagnosed with moderate cognitive impairment. Her mental status is usually alert and oriented x 2 usually not to time. That is about where she is this evening but I also do not feel that she is oriented to the situation. Plan I have spent 78 minutes in the care of this patient today. This includes time [id number], review and ordering of diagnostic imaging and laboratory studies gathering of history using an independent historian and consultation with other providers. Monitoring the patient's signs symptoms, evaluation of medication effectiveness and patient's response to treatment. Lab Results Lab results reviewed: Yes 12/16/24 11:56 12/16/24 11:56 EKG Results EKG Interpreted Independently: Yes EKG Findings: Prolonged QT
--- OUTSIDE RECORDS SUMMARY | 2024-12-16 21:36 | EXTERNAL MEDICAL SUMMARY RPT | Continuity of Care Document ---
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 [facility] 2024-10-09 10:25 Hypokalemia [facility] 2024-10-09 10:25 Dorsalgia, unspecified [facility] 2024-10-09 10:25 Pain in right thigh [facility] 2024-10-09 10:25 Pain, unspecified [facility] 2024-10-09 10:25 Other fatigue [facility] Results/Labs test date facility value unit notes Result panel 1 NUCLEATED RED BLOOD CELLS AUTO 2024-12-16 11:56 [facility] 0.0 /100wbc (missing) BASOPHILS # (AUTO) 2024-12-16 11:56 [facility] 0.0 10 3/ul (missing) EOSINOPHILS # (AUTO) 2024-12-16 11:56 [facility] 0.0 10 3/ul (missing) NRBC ABSOLUTE COUNT (AUTO) 2024-12-16 11:56 [facility] 0.00 x10 3/ul (missing) BILIRUBIN,TOTAL 2024-12-16 11:56 [facility] 0.4 mg /dl As of September 2022 testing method has changed, this may include reference ranges. CREATININE 2024-12-16 11:56 [facility] 0.6 mg/dl As of September 2022 testing method has changed, this may include reference ranges. MONOCYTES # (AUTO) 2024-12-16 11:56 [facility] 1.0 10 3/ul (missing) LYMPHOCYTES # (AUTO) 2024-12-16 11:56 [facility] 1.0 10 3/ul (missing) ALBUMIN/GLOBULIN RATIO 2024-12-16 11:56 [facility] 1.2 (missing) (missing) MAGNESIUM 2024-12-16 11:56 [facility] 1.9 mg/dl As of September 2022 testing method has changed, this may include reference ranges. MEAN PLATELET VOLUME 2024-12-16 11:56 [facility] 10.1 fl (missing) CHLORIDE 2024-12-16 11:56 [facility] 107 mmol/l As of September 2022 testing method has changed, this may include reference ranges. WHITE BLOOD COUNT 2024-12-16 11:56 [facility] 11.2 x10 3/ul (missing) GLUCOSE 2024-12-16 11:56 [facility] 110 mg/dl As of September 2022 testing method has changed, this may include reference ranges. HGB - HEMOGLOBIN 2024-12-16 11:56 [facility] 12.4 g /dl (missing) RED CELL DISTRIBUTION WIDTH 2024-12-16 11:56 [facility] 13.7 % (missing) SODIUM 2024-12-16 11:56 [facility] 137 mmol/l (missing) BUN - BLOOD UREA NITROGEN 2024-12-16 11:56 [facility] 19 mg/dl As of Sep testing method has changed, this may include reference ranges. CARBON DIOXIDE - CO2 2024-12-16 11:56 [facility] 24 mmol/l As of September 2022 testing method has changed, this may include reference ranges. MEAN CORPUSCULAR HEMOGLOBIN 2024-12-16 11:56 [facility] 27.9 pg (missing) PLT - PLATELET COUNT 2024-12-16 11:56 [facility] 290 10 3/ul (missing) GLOBULIN 2024-12-16 11:56 [facility] 3.3 g/dl (missing) ALBUMIN 2024-12-16 11:56 [facility] 3.8 g/dl As of September 2022 testing method has changed, this may include reference ranges. POTASSIUM 2024-12-16 11:56 [facility] 3.9 mmol/l As of September 2022 testing method has changed, this may include reference ranges. CK- CREATINE KINASE 2024-12-16 11:56 [facility] 300 iu/l As of September 2022 testing method has changed, this may include reference ranges. MEAN CORPUSCULAR HGB CONC 2024-12-16 11:56 [facility] 31.6 g/dl (missing) AST ASPARTATE AMINOTRANSFERASE 2024-12-16 11:56 [facility] 32 iu/l As of September 2022 testing method has changed, this may include reference ranges. ALT ALANINE AMINOTRANSFERASE 2024-12-16 11:56 [facility] 32 iu/l As of September 2022 testing method has changed, this may include reference ranges. HCT - HEMATOCRIT 2024-12-16 11:56 [facility] 39.3 % (missing) RED BLOOD COUNT 2024-12-16 11:56 [facility] 4.44 10 6/ul (missing) ANION GAP 2024-12-16 11:56 [facility] 6.0 (missing ) (missing) TOTAL PROTEIN 2024-12-16 11:56 [facility] 7.1 g/dl As of September 2022 testing method has changed, this may include reference ranges. MEAN CORPUSCULAR VOLUME 2024-12-16 11:56 [facility] 88.5 fl (missing) NEUTROPHILS # (AUTO) 2024-12-16 11:56 [facility] 9.1 10 3/ul (missing) CALCIUM 2024-12-16 11:56 [facility] 9.1 mg/dl As of September 2022 testing method has changed, this may include reference ranges. ALKALINE PHOSPHATASE 2024-12-16 11:56 [facility] 92 iu/l As of September 2022 testing method has changed, this may include reference ranges. GFR - MDRD 2024-12-16 11:56 [facility] 94 (colleen g) Social History date description facility
[2024-12-16] MEDS ORDERED: POTASSIUM CHLORIDE 8 MEQ PO SCH (21:56)
[2024-12-16] MEDS ORDERED: ONDANSETRON ODT 4 MG TABLET TL PRN (21:56)
[2024-12-16] MEDS ORDERED: CHLORTHALIDONE 25 MG PO SCH (21:56)
[2024-12-16] MEDS ORDERED: SODIUM CHLORIDE FLUSH 0.9% 10 ML SYRINGE IVP PRN (21:56)
[2024-12-16] MEDS: POTASSIUM CHLORIDE 10 MEQ CAPSULE PO ONE (23:51)
[2024-12-16] MEDS: SODIUM CHLORIDE FLUSH 0.9% 10 ML SYRINGE IVP SCH (23:52)
[2024-12-17 06:05] LABS: HCT - HEMATOCRIT 39.4 % (37.0-47.0); HGB - HEMOGLOBIN 12.7 g/dL (12.0-16.0); MEAN PLATELET VOLUME 9.9 fL (7.9-10.8); NRBC ABSOLUTE COUNT (AUTO) 0.00 x10^3/uL; NUCLEATED RED BLOOD CELLS AUTO 0.0 /100WBC; PLT - PLATELET COUNT 279 10^3/uL (130-450); RED CELL DISTRIBUTION WIDTH 13.8 % (12.0-15.0)
[2024-12-17 06:19] LABS: BUN - BLOOD UREA NITROGEN 13.0 mg/dL (6-20); CARBON DIOXIDE - CO2 23.0 mmol/L (21-32); CREATININE 0.6 mg/dL (0.6-1.3); GFR - MDRD 94.0 (>89)
[2024-12-17] MEDS ORDERED: POTASSIUM CHLORIDE 10 MEQ PO SCH (09:00)
[2024-12-17] MEDS: POTASSIUM CHLORIDE 10 MEQ CAPSULE PO SCH (09:11)
[2024-12-17] MEDS: NITROFURANTOIN MACRO 100 MG CAPSULE PO SCH (09:12)
[2024-12-17] MEDS: HEPARIN 5,000 UNIT/ML VIAL SUBQ SCH (09:12)
--- NOTE | 2024-12-17 09:35 | PT Plan of Care ---
PT Plan of Care Physical Therapy Plan of Care: Diagnosis Diagnosis metabolic encephalopathy Diagnosis UTI, found down Referring Provider Paige Stern Patient Status Inpatient Chief Complaint Chief Complaint pain, limited mobility Onset of Chief Complaint DIRECTOR INTERNAL CONTROL Medical History (Updated 12/17/24 @ 00:09 by SILVIA Betancur) Osteoarthritis of right shoulder Hammer toe Surgical History (Updated 09/14/24 @ 23:06 by Oralia Freitas, RN) History of total replacement of right shoulder joint Hx of tonsillectomy H/O cataract extraction Balance/ Functional Results Sitting Balance Good Standing Balance Fair Assessment Assessment Pt is an 89yo F referred for PT eval d/t fall at home, found down. Admitted with acute met encephalopathy, likely d/t UTI. Pt lives with , home environment info unknown as pt is A&Ox2 and unable to report. Pt states she uses a cane sometimes and per chart review pt ambulates in home. Cleared for eval by MD. Upon PT eval, met supine in bed. Pt A&Ox2, pleasantly confused and willing to participate. Reports some L foot/ankle pain but AROM and strength WNL . No bruising noted and pt able to proceed with mobility assessment. Transfers with minAx1 overall, requires FWW and modAx1 for stand pivot transfer to chair. Mild retropulsion and shuffle steps during gait assessment. Overall pt presenting with moderate to high fall risk, limited gait and general deconditioning. Pt may benefit from skilled PT in acute setting to progress functional mobility. When medically clear, PT rec dc to SNF as she is below baseline . Goals Improve bed mobility to: Modified Independent Improve supine to sit to: Modified Independent Improve sit to stand to: Contact Guard Improve pivot transfer ability Contact Guard to: Improve sit to supine to: Contact Guard Improve gait ability to: CGA Assistive Device Used: Front Wheeled Walker Improve Standing Balance to: Good PT Plan of Care Frequency 1-2x/day Duration Until discharge Discharge Recommendations Discharge Location Custodial Facility Support/Services Needed With assist DC Equipment Recommended Front wheeled walker Transport Needs at Discharge wc van vs POV
--- NOTE | 2024-12-17 15:56 | PROVIDER PROGRESS NOTE ---
Subjective Prog Note Date Prog Note Date: 12/17/24 Current Medications Current Medications Current Medications: Current Medications Generic Name Dose Route Start Last Admin Trade Name Freq PRN Reason Stop Dose Admin Acetaminophen 650 mg 12/16/24 21:56 Acetaminophen 325 Mg Tablet PO Q4HR PRN Pain 1 to 4, or Fever Heparin Sodium (Porcine) 5,000 unit 12/17/24 09:00 12/17/24 09:12 Heparin 5,000 Unit/Ml Vial SUBQ 5,000 unit BID JORGE Administration Hydrochlorothiazide 37.5 mg 12/17/24 09:00 12/17/24 09:11 Hydrochlorothiazide 25 Mg Tablet PO 37.5 mg DAILY JORGE Administration Nitrofurantoin 100 mg 12/17/24 09:00 12/17/24 09:12 Nitrofurantoin Macro 100 Mg Capsule PO 100 mg BID JORGE Administration Ondansetron HCl 4 mg 12/16/24 21:56 Ondansetron Odt 4 Mg Tablet TL Q6HR PRN Nausea / Vomiting Potassium Chloride 10 meq 12/17/24 08:00 12/17/24 09:11 Potassium Chloride 10 Meq Capsule PO 10 meq DAILYWM JORGE Administration Sodium Chloride 10 ml 12/16/24 21:56 Sodium Chloride Flush 0.9% 10 Ml Syringe IVP PRN PRN NEEDED PER PROVIDER ORDERS Sodium Chloride 10 ml 12/17/24 01:00 12/17/24 09:11 Sodium Chloride Flush 0.9% 10 Ml Syringe IVP 10 ml 0100,0900,1700 JORGE Administration Objective Vital Signs/Intake & Output Reviewed Vital Signs: Yes Vital Signs: Vital Signs x48h Temp Pulse Resp BP Pulse Ox 12/17/24 09:02 36.6 C 88 28 H 136/73 H 98 Intake & Output: Intake & Output 12/14/24 12/15/24 12/16/24 12/17/24 23:59 23:59 23:59 23:59 Intake Total 1200 / 1200 Output Total 400 / 400 1300 / 1300 Balance 800 / 800 -1300 / -1300 Weight (kg) 95.4 kg 93 kg Objective General Appearance: positive No acute distress and Alert Eyes Bilateral: positive Normal inspection ENT: positive ENT inspection nml Neck: positive Nml inspection Respiratory: positive Chest non-tender Cardiovascular: positive Regular rate & rhythm Abdomen: positive Non-tender Back: positive Nml inspection Skin: positive Color nml Extremities: positive Non-tender Neurologic/Psychiatric: positive Other (Intermittently confused, pleasant, sometimes oriented up to x 2) Lab Results 12/17/24 05:46 12/17/24 05:46 Other Labs: Lab Results x24hrs 12/17/24 Range/Units 05:46 WBC 9.9 (4.8-10.8) x10^3/uL RBC 4.45 (4.20-5.40) 10^6/uL Hgb 12.7 (12.0-16.0) g/dL Hct 39.4 (37.0-47.0) % MCV 88.5 (81.0-99.0) fL MCH 28.5 (27.0-31.0) pg MCHC 32.2 (32.0-36.0) g/dL RDW 13.8 (12.0-15.0) % Plt Count 279 (130-450) 10^3/uL MPV 9.9 (7.9-10.8) fL Neut # (Auto) 7.2 H (1.5-6.6) 10^3/uL Lymph # (Auto) 1.5 (1.5-3.5) 10^3/uL [place] # (Auto) 0.9 (0.0-1.0) 10^3/uL Eos # (Auto) 0.1 (0.0-0.7) 10^3/uL Baso # (Auto) 0.0 (0.0-0.1) 10^3/uL Absolute Nucleated RBC 0.00 x10^3/uL Nucleated RBC % 0.0 /100WBC Sodium 138 (135-145) mmol/L Potassium 3.8 (3.5-4.5) mmol/L Chloride 108 (101-111) mmol/L Carbon Dioxide 23 (21-32) mmol/L Anion Gap 7.0 (6-13) BUN 13 (6-20) mg/dL Creatinine 0.6 (0.6-1.3) mg/dL Estimated GFR (MDRD) 94 (>89) Glucose 114 H (74-104) mg/dL Calcium 8.8 (8.5-10.3) mg/dL Assessment/Plan Problem List (1) Metabolic encephalopathy: Impression: Baseline mentation intermittently confused, most oriented x 2 She is back to her baseline PT recommending SNF She is medically clear for discharge today (2) UTI (urinary tract infection): Impression: UA with nitrites, RBC, bacteria Urine culture pending Given her multiple antibiotic allergies, continuing Macrobid (3) Moderate cognitive impairment: Impression: Baseline dementia Lives with Anticipate she will at least need memory care if she does not go to SNF
--- NOTE | 2024-12-17 17:39 | PHARMACY PROGRESS NOTE ---
Best Possible Medication History Admit Date and Time: 12/17/24 1332 Home Medications Medication Instructions Recorded Confirmed Type chlorthalidone 25 mg tablet 25 mg PO QAM #90 tabs 01/2412/17/24 Rx Processed by: Pharmacy (Medication reconciliation completed by Accounts Payable Administrator Patria) Medications reviewed in ED?: No Medication History completed: Yes Patient Interview: Pt unable to participate Secondary Source(s): Spouse/Significant other [facility] Statement: As the person ultimately responsible for medication therapy, providers are able to order a medication from an existing home medication list in [facility] via the "Reconcile Routine" prior to Confirmation of that medication by customer support assistant. Such practice is discouraged except when the physician, in their clinical judgment, deems that a medical need exists for a medication without regard to previous use.
[2024-12-18] MEDS: ACETAMINOPHEN 325 MG TABLET PO PRN (01:30)
[2024-12-18 05:48] LABS: HCT - HEMATOCRIT 38.6 % (37.0-47.0); HGB - HEMOGLOBIN 12.2 g/dL (12.0-16.0); MEAN PLATELET VOLUME 10.5 fL (7.9-10.8); NRBC ABSOLUTE COUNT (AUTO) 0.00 x10^3/uL; NUCLEATED RED BLOOD CELLS AUTO 0.0 /100WBC; PLT - PLATELET COUNT 269 10^3/uL (130-450); RED CELL DISTRIBUTION WIDTH 13.9 % (12.0-15.0)
[2024-12-18 05:59] LABS: BUN - BLOOD UREA NITROGEN 20.0 mg/dL (6-20); CARBON DIOXIDE - CO2 24.0 mmol/L (21-32); CREATININE 0.7 mg/dL (0.6-1.3); GFR - MDRD 79.0 (>89)
--- NOTE | 2024-12-18 11:33 | Discharge Summary ---
Discharge Summary Admit Date: 12/16/24 Discharge Date: 12/18/24 Discharging Provider: Bhavik Mcgraw Primary Care Provider: Nelly Smith Code Status: Do Not Attempt Resuscitation DIAGNOSES Admission Diagnoses: Encephalopathy UTI Moderate cognitive impairment Discharge Diagnoses with Status of Each Condition: Encephalopathyresolved, Secondary to UTI UTIdischarging on Macrobid Moderate cognitive impairmentchronic HPI History of Present Illness: 89-year-old female with past medical history of dementia, peripheral edema and multiple drug allergies presents to the emergency department with complaints of being found down outside her bedroom door this morning. That was her only complaint. She was unable to get up off the floor after her fall. And was found by her . Overall I am unclear of what her baseline orientation is. I evaluate the patient initially at the bedside then I called her . He tells me that lately she has been confused. She does not seem to know what day it is most of the time and has deficits in her short-term memory. When I ask him how long this has been going on he tells me he thinks 2 to 3 months. When asked the patient to verify her drug allergies and confirmed that her reactions to all these medications are hives she tells me that she is really not sure. She does not know what her drug allergies are or what her reactions are. Her denies all knowledge of her drug allergies as well. HOSPITAL COURSE Hospital Course: Patient was admitted into the hospital and started on Macrobid given her extensive antibiotic allergies. She has had good response to this, and her mentation is at her baseline of at most oriented x 2, frequently pleasantly confused. She was evaluated by PT, who recommended SNF. Given distance that her family would have to travel to the only improved SNF's, family made the decision to bring her back home with her . Nursing reported some intermittent tachycardia overnight, but EKG shows normal sinus rhythm. I am discharging her to continue her course of Macrobid and follow-up with PCP ALLERGIES Allergies Allergy/AdvReac Type Severity Reaction Status Date / Time amoxicillin Allergy Unknown Hives Verified 12/16/24 12:03 cefadroxil Allergy Unknown Hives Verified 12/16/24 12:03 cephalexin Allergy Unknown Hives Verified 12/16/24 12:03 clindamycin Allergy Unknown Hives Verified 12/16/24 12:03 erythromycin base Allergy Unknown Hives Verified 12/16/24 12:03 cephalexin monohydrate * Allergy Hives Verified 12/16/24 12:03 (From Keflex) Penicillins Allergy Hives Verified 12/16/24 12:03 tacrolimus (From Protopic) Allergy Hives Verified 12/16/24 12:03 BEE STINGS Allergy Severe Unknown Uncoded 12/16/24 12:03 CLINDAMYCIN HCL Allergy Severe Unknown Uncoded 12/16/24 12:03 PENICILLIN V POTASSIUM Allergy Unknown hives Uncoded 12/16/24 12:03 MEDICATIONS Ambulatory Orders Medication Instructions Recorded Confirmed chlorthalidone 25 mg tablet 25 mg PO QAM #90 tabs 01/2412/17/24 nitrofurantoin 100 mg PO BID 3 days #6 caps 12/18/24 monohydrate/macrocrystals 100 mg capsule PHYSICAL EXAM AT DISCHARGE Vital Signs: Vital Signs x48h Temp Pulse Pulse Resp BP Pulse Ox 12/18/24 14:56 36.6 C 78 18 125/78 97 12/18/24 13:10 36.3 C L 77 16 112/75 96 12/18/24 09:31 117 H 12/18/24 09:31 94 12/18/24 09:30 100 12/18/24 09:30 91 12/18/24 09:30 112 H Physical Exam Other/Comments: General Appearance: positive No acute distress and Alert Eyes Bilateral: positive Normal inspection ENT: positive ENT inspection nml Neck: positive Nml inspection Respiratory: positive Chest non-tender Cardiovascular: positive Regular rate & rhythm Abdomen: positive Non-tender Back: positive Nml inspection Skin: positive Color nml Extremities: positive Non-tender Neurologic/Psychiatric: positive Other (Intermittently confused, pleasant, sometimes oriented up to x 2) LABS 12/18/24 05:17 12/18/24 05:17 FOLLOW UP Follow Up: With PCP TIME SPENT Time Spent in Discharge (Minutes): 38 Discharge Plan Discharge Patient Disposition: Home, Self Care Condition: Good Prescriptions: New nitrofurantoin monohyd/m-cryst 100 mg Capsule 100 mg PO BID 3 Days Qty: 6 0RF Continued chlorthalidone 25 mg tablet 25 mg PO QAM Qty: 90 3RF Rx Instructions: Take 1 tablet by mouth every morning Diet: Regular Interventions: Discharge Last Done: 12/18/24 14:56 Discharge Checklist - Nursing Last Done: 12/18/24 14:56 Discharge Vital Signs (30 Minutes) Last Done: 12/18/24 14:56 Health Concerns: You came to the hospital because you were confused. We found out you had a UTI which is likely the cause of this. We started you on antibiotics with good effect. I am discharging you back to your prior living situation at the request of you and your family. I am ordering home health care services to come out and help you with strengthening exercises. Please maintain a good healthy diet, finish your course of antibiotics, and follow-up with your PCP Print Language: Estonian Patient Instructions: ED UTIs Women Stand Alone Forms: PCP List Follow-up Care: Nelly Smith ARNP [Primary Care Provider, Family Practice] Vitals documented within 30 minutes of discharge?: Yes
[2024-12-18 14:58] VITALS: BP 125/78; TEMP 97.9; O2SAT 97
== END 2024-12-18 14:58 | disposition home or self-care (01) ==
LOC: EDBD → ED 11:05 → INTOOBSV 21:32 → MS2 21:32
PROVIDERS: ADMIT Physician Assistant Medical; ATTEND Nurse Practitioner Acute Care